=== PATIENT | male | born 2000 | race Caucasian/White ===

== ENCOUNTER 2025-08-22 10:14 | Emergency (ER) | payer SELFPAY ==
--- OUTSIDE RECORDS SUMMARY | 2025-08-22 10:17 | XMS REPORT | Continuity of Care Document ---
Author Name Unknown Address [address] [facility] [address] [place] [address] Organization [facility] [place] Address [address] [facility] 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 Role Phone Pcp, Patient Does Not Have A Primary Care Physic thom Diana HERNANDEZ, Rosalind Clay Attending Clinician + Allergies, Adverse Reactions, Alerts Allergy Name Allergy Type Status Severity Reaction(s) Onset Date Inactive Date Treating Clinician Comments Source NO KNOWN ALLERGIE S Drug Class Active [facility] Social History Social Habit Start Date Stop Date Quantity Comments Source Sexual orientation U [facility] Sex assigned at 2000 00:00:00 2000 00:00:00 [facility] Smoking Status Start Date Stop Date Source Tobacco smoking consumption unknown [facility] Medications Ordered Medication Name Filled Medication Name Start Date Stop Date Current Medication? Ordering Clinician Indication Dosage Frequency Signature (SIG) Comments Components Source ketorolac (TORADOL) injection 15 mg 06-24 09:45: 00 06-24 09:09 :00 No 15mg 15 mg, Slow IV Push, ONCE, 1 dose, On 06/24/25 at 0445, Routine [facility] Vital Signs Vital Name Observation Time Observation Value Comments Stefan varner Systolic blood pressure 2025-06-24 10:30:00 130 mm[Hg] [facility] Diastolic blood pressure 2025-06-24 10:30:00 76 mm[Hg] [facility] Heart rate 2025-06-24 10:30:00 66 /min [facility] Body temperature 2025-06-24 10:30:00 36.67 Jada [facility] Respiratory rate 2025-06-24 10:30:00 18 /min [facility] Oxygen saturation in Arterial blood by Pulse oximetry 2025-06-24 10:30:00 97 /min [place] [facility] Body height 2025-06-24 08:33:[address] [facility] Body weight 2025-06-24 08:33:[address] [facility] BMI 2025-06-24 08:33:00 21.83 kg/m2 [facility] Procedures Procedure Date / Time Performed Performing Clinicia n Source COMP. METABOLIC PANEL (56313) 2025-06-24 09:06:00 Rosalind Ortiz [facility] CBC WITH DIFF 2025-06-24 09:06:00 Rosalind Ortiz [facility] URINALYSIS 2025-06-24 09:06:00 Rosalind Ortiz [facility] Encounters Start Date/Time End Date/Time Encounter Type Admission Type Attending Clinicians Care Facility Care Department Encounter ID Source 2025-06-24 03:29:00 2025-06-24 05:46:00 Emergency X Rosalind Ortiz [facility] [id number] [facility] Notes Date/Time Note Provider Source 2025-06-24 05:45:34 Patient given discharge instructions, and verbalized no further concerns or questions. Skin p/w/d, rr equal and non labored. A&Ox4. Ambulated independently with a steady gait in stable condition. [facility] 2025-06-24 03:33:21 Patient comes in with abdominal pain. Seen at [facility] ER and discharged about 2300. Reports was too bad. Was given tylenol and has had no pain relief. Skin p/w/d, rr equal and non labored. A&Ox4. Ambulatory to room. [facility] 2025-06-24 03:25:00 [facility] Emergency Department Note Patient Name: Stefan Garcia Date of : 2000 24 year old male Treatment Room: FL6 Primary Care Physician: No primary care provider on file. 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 The patient began experiencing lower abdominal pain on the morning of 06/24/2025. He describes the pain as the most intense discomfort he has ever felt, comparing it to the pain he experienced during his appendicitis. The pain is not sharp but becomes noticeable upon applying pressure and radiates upwards. He also reports feeling extremely fatigued and nearly fell asleep while driving to the hospital. The patient was previously seen at [facility] where he was given pain medication. A CT scan was performed at [facility], but it did not reveal any abnormalities. He has been feeling nauseous for the past 3 hours but has not vomited. He has no other known medical conditions. 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 Tetanus received in last 5 years: Yes Childhood immunizations: Up-to-date Allergies: No Known Allergies Past Social History: Substance & Sexual Activity No substance use or sexual activity history on file. Past Surgical History: No past surgical history on file. Review of Systems: Review of Systems Constitutional: Negative for activity change, appetite change, fatigue and fever. HENT: Negative for congestion, facial swelling and rhinorrhea. Eyes: Negative for photophobia and visual disturbance. Respiratory: Negative for apnea, cough, choking, chest tightness, shortness of breath, wheezing and stridor. Cardiovascular: Negative for chest pain, palpitations and leg swelling. Gastrointestinal: Positive for abdominal pain and nausea. Negative for abdominal distention, anal bleeding, blood in stool, constipation, diarrhea and vomiting. Genitourinary: Negative for dysuria. Musculoskeletal: Negative for neck pain. Neurological: Negative for dizziness, tremors, seizures, syncope, facial asymmetry, speech difficulty, weakness, light-headedness, numbness and headaches. Physical Exam: Physical Exam Gastrointestinal: Abdomen is not tender on palpation. ED Triage Vitals [06/24/25 0333] Weight 77.1 kg (170 lb) Actual or estimated Estimated by patient/family report Height 1.88 m (6' 2") BP (!) 158/85 Pulse 73 Resp 24 Temp 36.7 ?C (98.1 ?F) Temp source Oral SpO2 100 % Measured on Room air Physical Exam Vitals and nursing note reviewed. Constitutional: General: He is not in acute distress. Appearance: He is well-developed. He is not diaphoretic. HENT: Head: Normocephalic and atraumatic. Mouth/Throat: Pharynx: No oropharyngeal exudate. Eyes: General: No scleral icterus. Right eye: No discharge. Neck: Vascular: No JVD. Cardiovascular: Rate and Rhythm: Normal rate and regular rhythm. Heart sounds: Normal heart sounds. No murmur heard. No friction rub. No gallop. Pulmonary: Effort: Pulmonary effort is normal. No respiratory distress. Breath sounds: Normal breath sounds. No stridor. No wheezing or rales. Chest: Chest wall: No tenderness. Abdominal: General: Bowel sounds are normal. There is no distension. Palpations: Abdomen is soft. There is no mass. Tenderness: There is no abdominal tenderness. There is no guarding or rebound. Musculoskeletal: Cervical back: Normal range of motion and neck supple. Lymphadenopathy: Cervical: No cervical adenopathy. Neurological: Mental Status: He is alert and oriented to person, place, and time. Cranial Nerves: No cranial nerve deficit. Coordination: Coordination normal. Radiology: No orders to display Lab Results: Lab Results CBC WITH DIFF - Abnormal Result Value Ref Range WBC 6.14 4.20 - 10.70 10*3/?L RBC 4.99 4.26 - 5.52 10*6/?L HGB 15.9 12.2 - 16.4 g/dL HCT 47.1 38.4 - 49.3 % MCV 94.4 81.7 - 95.6 fL MCH 31.9 26.1 - 32.7 pg MCHC 33.8 31.2 - 35.0 g/dL RDW-SD 42.1 38.5 - 51.6 fL RDW-CV 12.1 12.1 - 15.4 % PLT 207 150 - 328 10*3/?L MPV 9.9 9.8 - 13.0 fL NRBC/100 WBC 0.0 0.0 - 10.0 /100 WBCs NRBC x10 3 <0.01 10*3/?L GRAN MAT (NEUT) % 76.6 % IMM GRAN % 0.20 % LYMPH % 14.8 % MONO % 8.0 % EOS % 0.2 % BASO % 0.2 % GRAN MAT x10 3 (ANC) 4.71 1.99 - 6.95 10*3/uL IMM GRAN x10 3 <0.03 0.00 - 0.06 10*3/uL LYMPH x10 3 0.91 (*) 1.09 - 3.23 10*3/uL MONO x10 3 0.49 0.36 - 1.02 10*3/uL EOS x10 3 <0.03 (*) 0.06 - 0.53 10*3/uL BASO x10 3 <0.03 0.01 - 0.09 10*3/uL COMP. METABOLIC PANEL (41057) - Abnormal NA 136 135 - 145 mmol/L K 3.7 3.5 - 5.0 mmol/L CL 100 98 - 108 mmol/L CO2 TOTAL 25 23 - 31 mmol/L AGAP 11 2 - 16 BUN 17 7 - 23 mg/dL GLUCOSE 122 (*) 70 - 110 mg/dL CREATININE 0.92 0.60 - 1.25 mg/dL TOTAL BILI 1.4 (*) 0.1 - 1.1 mg/dL CALCIUM 10.8 (*) 8.6 - 10.6 mg/dL T PROTEIN 8.7 (*) 6.3 - 8.2 g/dL ALBUMIN 5.4 (*) 3.5 - 5.0 g/dL ALK PHOS 103 34 - 122 U/L ALTv 46 5 - 50 U/L AST(SGOT) 46 (*) 13 - 40 U/L eGFR 120.6 mL/min/1.73m2 URINALYSIS - Abnormal APPEARANCE Clear Clear COLOR Yellow Yellow PH 6.0 4.8 - 8.0 SP GRAVITY 1.024 1.003 - 1.030 GLU U QUAL Normal Normal BLOOD Negative Negative KETONES 20 mg/dL (*) Negative PROTEIN Negative Negative UROBILIN Normal Normal BILIRUBIN Negative Negative NITRITE Negative Negative LEUK ALAN Negative Negative RBC/HPF 1 0 - 3 HPF WBC/HPF <1 0 - 5 HPF BACTERIA Few (*) Negative MUCOUS Slight (*) Negative LPF SQ EPITH <1 HPF EKG: If EKG completed, see Procedure Note. Orders and Treatments: Orders Placed This Encounter Procedures Cbc with Diff Comp. Metabolic Panel (92786) Urinalysis Orders Placed This Encounter Medications ketorolac (TORADOL) injection 15 mg First Provider Eval: ED Events Date/Time Event User Comments 06/24/25326 Medical Screening Begins ROSALIND ORTIZ MD -- 06/24/25326 First Provider Evaluation ROSALIND ORTIZ MD -- ED COURSE Diagnosis/Impression as of 06/24/25 0359 Abdominal pain, unspecified abdominal location Results Laboratory Studies Labs unremarkable. Urine negative for infection. Imaging CT scan of the abdomen was reportedly normal. Procedures: Procedures MDM: Assessment & Plan Initial Assessment:ower abdominal pain started this morning, described as unbearable and radiating upwards when pressure is applied. Seen at [facility] where a CT scan was performed and reported as normal. No other medical problems. No vomiting but nausea for the past 3 hours. No significant tenderness upon palpation. Laboratory results unremarkable. Urine test negative for infection. Differential Diagnosis: - Appendicitis: History of appendectomy 2 years ago. Unlikely due to normal CT scan. - Gastrointestinal issues: Severe pain, nausea. Labs unremarkable. Follow-up with PCP. - Urinary tract infection: Negative urine test. Unlikely. ED Course: Labs checked and reviewed. Urine test obtained, negative for infection. Final Assessment: Severe lower abdominal pain with unremarkable labs and negative urine test. Normal CT scan at outside hospital. Clinical Impression: - Abdominal pain - Nausea Disposition: Discharge: Home. Follow-up with PCP. Follow-Up: Close PCP follow-up. Medical Decision Making Amount and/or Complexity of Data Reviewed Labs: ordered. Risk Prescription drug management. Flowsheet Documentation: Scoring Tools: No data recorded Disposition/Condition: ED Disposition ED Disposition Discharge Condition Stable Comment -- Discharge Medications: Patient's Medications No medications on file Follow-up: Electronically signed by: Rosalind Ortiz MD 06/24/25 0533 T [facility]
[2025-08-22] MEDS ORDERED: KETOROLAC 30 MG/ML INJ ONE (10:43)
[2025-08-22] MEDS ORDERED: HYDROCODONE/APAP 5/325 MG TAB ONE (10:43)
[2025-08-22] MEDS ORDERED: TDAP (DIPHTH,PERTUSS(ACELL),TET VAC) 0.5 ML VIAL IMVAC ONE (11:23)
--- NOTE | 2025-08-22 11:52 | RAD REPORT ---
EXAM: Hand Right 3 View HISTORY: Pain;Swelling COMPARISON: None FINDINGS: Bones: No acute fracture identified. Alignment:No significant malalignment. Degenerative changes:None significant. Other: n/a IMPRESSION: No acute osseous abnormality involving the imaged hand.
--- NOTE | 2025-08-22 12:10 | EDPHYS ---
Physician Documentation [facility] Name: Stefan Russell Age: 24 yrs Sex: Male : 2000 Arrival Date: 08/22/2025 Time: 10:14 Bed 20 Private MD: ED Physician Jon Cotton HPI: 08/22 11:26 This 24 yrs old Male presents to ER via Ambulatory with complaints of Hand dr5 Injury. 11:26 The patient or guardian reports pain, swelling, tenderness. The complaints affect the dr5 right hand diffusely. Onset: The symptoms/episode began/occurred yesterday. Patient is a 24-year-old male with no past medical history coming in with right hand swelling and pain after punching a fence yesterday. Patient reports that he got angry and punched a fence and had pain that has worsened today. Patient reports mild numbness and tingling.. Historical: - Allergies: 10:34 No Known Allergies; dd2 - PMHx: 10:34 None; dd2 - PSHx: 10:34 Appendectomy; dd2 - Immunization history:: Adult Immunizations up to date, Last tetanus immunization: > 10 years ago. - Infectious Disease History:: Denies. - Social history:: Smoking status: Patient denies any tobacco usage or history of. Patient uses street drugs, marijuana. ROS: 12:05 Constitutional: as per hpi dr5 Exam: 12:05 Constitutional: This is a well developed, well nourished patient who is awake, alert, dr5 and in no acute distress. Head/Face: Normocephalic, atraumatic. Eyes: Pupils equal round and reactive to light, extra-ocular motions intact. Lids and lashes normal. Conjunctiva and sclera are non-icteric and not injected. Cornea within normal limits. Periorbital areas with no swelling, redness, or edema. Neck: Trachea midline, no thyromegaly or masses palpated, and no cervical lymphadenopathy. Supple, full range of motion without nuchal rigidity, or vertebral point tenderness. No Meningismus. Chest/axilla: Normal chest wall appearance and motion. Nontender with no deformity. No lesions are appreciated. Cardiovascular: Regular rate and rhythm with a normal S1 and S2. Normal PMI, no JVD. No pulse deficits. Respiratory: Lungs have equal breath sounds bilaterally, clear to auscultation. No rales, rhonchi or wheezes noted. No increased work of breathing, no retractions or nasal flaring. Back: No spinal tenderness. No costovertebral tenderness. Full range of motion. Skin: Warm, dry with normal turgor. Normal color with no rashes, no lesions, and no evidence of cellulitis. Neuro: Awake and alert, GCS 15, oriented to person, place, time, and situation. Cranial nerves II-XII grossly intact. Motor strength 5/5 in all extremities. Sensory grossly intact. Cerebellar exam normal. Normal gait. 12:05 Musculoskeletal/extremity: Extremities: grossly normal except: noted in the right hand: contusion, swelling, tenderness, ROM: full active range of motion, Circulation is intact in all extremities. Sensation intact. Vital Signs: 10:30 BP 154 / 103; Pulse 99; Resp 16; Temp 97.9; Pulse Ox 100% on R/A; Weight 74.84 kg; Pain dd2 2/10; 11:53 BP 110 / 78; Pulse 69; Resp 16; Pulse Ox 98% ; go2 12:23 BP 120 / 70; Pulse 85; Resp 16; Pulse Ox 100% ; go2 10:30 Pain Scale: Adult dd2 Procedures: 12:05 Splinting: Splint applied to right hand using maxim wrap, applied by nurse. Examined by jad kelsey, post splint application: neurovascular intact, 2+ distal pulses palpable, brisk capillary refill noted, Patient tolerated well. MDM: 10:18 Medical Screening Exam initiated dr5 12:06 Differential diagnosis: dislocation, open fracture, closed fracture, contusion, dr5 abrasion. Data reviewed: vital signs, nurses notes, radiologic studies, plain films. Consideration of Admission/Observation Escalation of care including admission/observation considered. Escalation considered patient found to have open fracture.. I considered the following discharge prescriptions or medication management in the emergency department I discussed and recommended Over The Counter medications, Medications were administered in the Emergency Department. See MAR. Independent interpretation of the following test(s) in the Emergency Department X-Ray: My interpretation is Independent interpretation of x-ray does not reveal fracture. Test considered but Not performed: CT: CT considered but patient does not have fracture or open fracture noted.. Historians other than the Patient: Spouse/Significant Other: at bedside. Care significantly affected by the following Social Determinants of Health: Poor access to healthcare and/or lack of insurance, Poor access to transportation, Problems related to employment. Counseling: I had a detailed discussion with the patient and/or guardian regarding the historical points, exam findings, and any diagnostic results supporting the discharge/admit diagnosis, the presence of at least one elevated blood pressure reading (>120/80) during this emergency department visit, radiology results, the need for outpatient follow up, for definitive care, a orthopedic surgeon, to return to the emergency department if symptoms worsen or persist or if there are any questions or concerns that arise at home. Medication response: Response to treatment: the patient's symptoms have mildly improved after treatment. Special discussion: Based on the patient's history, exam and DX evaluation, there is no indication for emergent intervention or inpatient [place]. It is understood by the patient/guardian that if the SXs persist or worsen they need to return immediately for re-evaluation. I discussed with the patient/guardian in detail that at this point there is no indication for admission to the hospital. It is understood, however, that if the symptoms persist or worsen the patient needs to return immediately for re-evaluation. Based on the history and exam findings, there is no indication for further emergent testing or inpatient evaluation. I discussed with the patient/guardian the need to see the orthopedic surgeon for further evaluation of the symptoms. ED course: No fracture noted on x-ray. Tetanus updated in ER. Recommended alternate Tylenol Motrin as needed for pain and swelling. All questions answered. Strict ER precautions given. Maxim wrap applied for compression and RICE recommended. Patient had small abrasion and will cover that with Steri-Strips.. 08/22 10:35 Order name: Hand Right 3 View XRAY; Complete Time: 11:54 dr5 08/22 12:01 Order name: Maxim Wrap; Complete Time: 12:22 dr5 Administered Medications: 10:53 Drug: Ketorolac IM 30 mg IM once Route: IM; Site: right deltoid; go2 11:54 Follow up: Response: Pain is decreased go2 10:53 Drug: HYDROcodone-acetaminophen PO 5 mg-325 mg 2 tabs PO once Route: PO; go2 11:54 Follow up: Response: Pain is decreased go2 11:40 Drug: Boostrix Tdap IM 0.5 ml IM once; as a single dose Route: IM; Site: left deltoid; go2 Disposition: 11:34 I was immediately available on-site in the Emergency Department for consultation in the ms3 care of the patient. Disposition Summary: 08/22/25 12:09 Discharge Ordered Notes: Location: Home dr5 Condition: Stable dr5 Diagnosis - Contusion of right hand dr5 Followup: dr5 - With: Emergency Department - When: As needed - Reason: Worsening of condition Followup: dr5 - With: Private Physician - When: 1 - 2 days - Reason: Recheck today's complaints, Continuance of care, Re-evaluation by your physician Discharge Instructions: - Discharge Summary Sheet dr5 - Hand Contusion dr5 - RICE Therapy for Routine Care of Injuries dr5 Forms: - Medication Reconciliation Form dr5 - Patient Portal Instructions dr5 - Leadership Thank You Letter dr5 Prescriptions: - Ibuprofen 800 mg Oral Tablet - take 1 tablet ORAL route every 12 hours As needed take with food; 20 tablet; dr5 Refills: 0, Product Selection Permitted Signatures: Dispatcher [employer] EDMS Jon Cotton, DO ms3 MAIKEL MAJOR RN RN dd2 Ann Bradshaw RN RN go2 Oswaldo Jaime, RACK WORKER-C RACK WORKER-Cdr5
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
[2025-08-22 12:39] VITALS: TEMP 97.9
[2025-08-22 12:42] VITALS: BP 120/70; O2SAT 100
== END 2025-08-22 12:24 | disposition home or self-care (01) ==
LOC: ER 10:14
DX: S60.221A Contusion of right hand, initial encounter (principal); W22.8XXA Striking against or struck by other objects, initial encounter; Y93.9 Activity, unspecified; Y92.9 Unspecified place or not applicable; Z23 Encounter for immunization
CPT/HCPCS: 90715; 96372; 99284; J1885